=== PATIENT | male | born 1945 | race African-American/Black ===

== ENCOUNTER 2021-06-19 13:32 | Emergency (ER) | payer MEDICARE, MEDICAID ==
[~2021-06-19] VITALS: Ht 180.3 cm; Wt 73.0 kg
[~2021-06-19 13:32] MED LIST: LOTREL
[2021-06-19 13:55] VITALS: BP 111/51
[2021-06-19] MEDS ORDERED: SODIUM CHLORIDE 0.9% 1,000 ML IV ONE (14:45)
== END 2021-06-19 15:24 | disposition left against medical advice (07) ==
LOC: ER 13:52
DX: R53.1 Weakness (principal); I10 Essential (primary) hypertension; E78.00 Pure hypercholesterolemia, unspecified; Z85.528 Personal history of other malignant neoplasm of kidney
CPT/HCPCS: 93005; 99283; J7030